=== PATIENT | female | born 1980 | race Caucasian/White ===

== ENCOUNTER 2023-04-13 04:06 | Emergency (ER) | payer OTHER ==
[2023-04-13] MEDS ORDERED: Aluminum Hydroxide/Magnesium Hydroxide/Simethicone Susp 30 ML Cup PO ONE (05:50)
[2023-04-13 05:58] LABS: HEMATOCRIT 35.9 % (37.0-47.0); HEMOGLOBIN 11.5 g/dL (12.0-16.0); MEAN CORPUSCULAR HEMOGLOBIN 28.6 pg (27.0-34.0); MEAN CORPUSCULAR VOLUME 89.3 fL (80-100); PLATELET COUNT,PLT 361 10^3/uL (150-450); RED BLOOD CELL COUNT 4.02 10^6/uL (4.2-5.4); WHITE BLOOD CELL COUNT,WBC 16.6 10^3/uL (5.0-10.0)
[2023-04-13] MEDS ORDERED: Ondansetron 4 MG/2 ML SDV IVPUSH ONE (06:00)
[2023-04-13 06:09] LABS: BASOPHILS PERCENT AUTO 0.2 % (0.0-1.0); EOSINOPHILS PERCENT AUTO 0.3 % (1.0-3.0); LYMPHOCYTES PERCENT AUTO 23.8 % (20.5-50.1); MONOCYTES PERCENT AUTO 14.8 % (2-8); NEUTROPHILS PERCENT AUTO 60.9 % (42.2-75.2)
[2023-04-13 06:12] LABS: ALBUMIN 3.2 g/dL (3.4-5.0); ANION GAP 16.4 mEq/L (7-13); BILIRUBIN TOTAL 0.2 mg/dL (0.2-1.0); BUN/CREATININE RATIO 19.4 (No establ ref range); CALCIUM 8.6 mg/dL (8.5-10.1); CREATININE 1.55 mg/dL (0.55-1.02); EST CRCL DRUG DOSING (CG) 37.78 mL/min; POTASSIUM,K 3.4 mmol/L (3.5-5.1); PROTEIN TOTAL,TP 6.8 g/dL (6.4-8.2)
[2023-04-13 06:13] LABS: A/G RATIO 0.89
[2023-04-13 06:15] LABS: LACTIC ACID 1.4 mmol/L (0.4-2.0)
[2023-04-13 06:22] LABS: LYMPHOCYTES PERCENT MAN 21 % (20-50); MONOCYTES PERCENT MAN 13 % (2-8); SEG NEUTROPHILS PERCENT MAN 66 % (42-75)
[2023-04-13] MEDS ORDERED: Lidocaine 5% 700 MG Patch TOP ONE (07:36)
[2023-04-13] MEDS ORDERED: Sodium Chloride 0.9% 1,000 ML IV ONE (07:47)
== END 2023-04-13 09:12 | disposition home or self-care (01) ==
LOC: DL.ED 04:06
DX: R07.81 Pleurodynia (principal); I10 Essential (primary) hypertension; E86.0 Dehydration; Z79.899 Other long term (current) drug therapy; Z88.6 Allergy status to analgesic agent; Z88.8 Allergy status to other drugs, medicaments and biological substances; Z79.4 Long term (current) use of insulin; Z68.43 Body mass index [BMI] 50.0-59.9, adult
CPT/HCPCS: 36415; 71045; 74176; 80053; 83605; 85025; 96374; 99284; A9270; J1642; J2405; J7030